=== PATIENT | male | born 1985 | race Caucasian/White ===

== ENCOUNTER 2017-07-15 08:09 | Emergency (ER) | payer MEDICAID ==
[~2017-07-15] VITALS: Ht 172.7 cm; Wt 60.0 kg
[~2017-07-15 08:09] MED LIST: ALBU8.5H4 IH; ALBU8.5H8 IH; ALPR-624 PO; ALPR1TAB2 PO; ALPR2TAB7 PO; CEPH-571 PO; CLIN-80 PO; ENAL5TAB PO; IBUP-1986 PO; NO HOME MEDS; OLAN5TAB3 PO; ONDA4TAB12 PO; PARO20TA6 PO; PARO30TA73 PO; PRAZ1CAP5 PO; PRED20TA PO; PROP10TA10 PO
[2017-07-15] MEDS ORDERED: SUMAtriptan 5 mg Nasal Spray NS ONE (08:40)
[2017-07-15] MEDS ORDERED: metoclopramide 5 mg/ml inj IM ONE (08:40)
[2017-07-15] MEDS ORDERED: ketorolac trometh inj. 60 MG/2 ML VIAL IM ONE (08:40)
[2017-07-15] MEDS ORDERED: SUMAtriptan succ. 6 MG/0.5ml vial SQ ONE (09:15)
[2017-07-15 10:26] VITALS: BP 122/60
== END 2017-07-15 10:28 | disposition home or self-care (01) ==
LOC: ER 08:10
DX: G43.909 Migraine, unspecified, not intractable, without status migrainosus (principal); F12.10 Cannabis abuse, uncomplicated; F15.10 Other stimulant abuse, uncomplicated; F11.10 Opioid abuse, uncomplicated
CPT/HCPCS: 70450; 96372; 99284; J1885; J2765; J3030

== ENCOUNTER 2018-01-18 17:42 | Emergency (ER) | payer MEDICAID ==
[~2018-01-18] VITALS: Ht 170.2 cm; Wt 59.5 kg
[~2018-01-18 17:42] MED LIST changes: -CLIN-80 PO; +CLIN300C85 PO; +QUET50TA PO; +TEMA15CA5 PO
[2018-01-18 17:49] VITALS: BP 127/63
[2018-01-18] MEDS ORDERED: PROPARACAINE/FLUORESCEIN ophthalmic drops 5ml bottle EACHEYE ONE (19:20)
[2018-01-18] MEDS ORDERED: succinylcholine 20mg/ml inj IV ONE (20:00)
== END 2018-01-18 19:57 | disposition left against medical advice (07) ==
LOC: ER 17:43
DX: H57.11 Ocular pain, right eye (principal); Z53.21 Procedure and treatment not carried out due to patient leaving prior to being seen by health care provider
CPT/HCPCS: J0330

== ENCOUNTER 2018-03-28 08:46 | Emergency (ER) | payer MEDICAID | END 2018-03-28 09:39 | disposition left against medical advice (07) | LOC: ER 08:46 | DX: R10.9 Unspecified abdominal pain (principal); Z53.21 Procedure and treatment not carried out due to patient leaving prior to being seen by health care provider ==

== ENCOUNTER 2018-04-03 14:02 | Emergency (ER) | payer MEDICAID ==
[~2018-04-03] VITALS: Ht 170.2 cm; Wt 49.0 kg
[2018-04-03 14:26] VITALS: BP 106/62
[2018-04-03] MEDS ORDERED: PENI500T2 PO (16:02)
[2018-04-03] MEDS ORDERED: IBUP-1984 PO (16:02)
== END 2018-04-03 16:11 | disposition home or self-care (01) ==
LOC: ER 14:03
DX: K02.9 Dental caries, unspecified (principal); F17.210 Nicotine dependence, cigarettes, uncomplicated; F12.90 Cannabis use, unspecified, uncomplicated; F15.90 Other stimulant use, unspecified, uncomplicated; F11.90 Opioid use, unspecified, uncomplicated; F19.90 Other psychoactive substance use, unspecified, uncomplicated; Z91.041 Radiographic dye allergy status; Z79.2 Long term (current) use of antibiotics; Z79.899 Other long term (current) drug therapy
CPT/HCPCS: 99283

== ENCOUNTER 2018-04-08 00:53 | Emergency (ER) | payer MEDICAID ==
[~2018-04-08] VITALS: Ht 170.2 cm; Wt 51.2 kg
[~2018-04-08 00:53] MED LIST changes: +IBUP-1984 PO; +PENI500T2 PO
[2018-04-08] MEDS ORDERED: ACET-3067 PO (01:41)
[2018-04-08 01:54] VITALS: BP 107/69
== END 2018-04-08 01:55 | disposition home or self-care (01) ==
LOC: ER 00:54
DX: R07.81 Pleurodynia (principal); F41.9 Anxiety disorder, unspecified; F32.9 Major depressive disorder, single episode, unspecified; F12.10 Cannabis abuse, uncomplicated; F15.10 Other stimulant abuse, uncomplicated; Z91.041 Radiographic dye allergy status; Z79.899 Other long term (current) drug therapy
CPT/HCPCS: 71101; 99284

== ENCOUNTER 2018-09-13 02:56 | Emergency (ER) | payer MEDICAID ==
[~2018-09-13] VITALS: Ht 170.2 cm; Wt 68.2 kg
[~2018-09-13 02:56] MED LIST changes: +CLIN-96 PO; -CLIN300C85 PO; -IBUP-1984 PO; -PENI500T2 PO
[2018-09-13 03:04] VITALS: BP 111/76
--- NOTE | 2018-09-13 03:26 | NUR ---
PT FOUND WITH GLIDESCOPE DOWN HIS THROAT. GLIDESCOPE REMOVED FROM ROOM AND THOROUGHLY SANITIZED
[2018-09-13] MEDS ORDERED: amoxicillin 250mg capsule PO ONE (03:50)
[2018-09-13] MEDS ORDERED: AMOX500C2 PO (03:51)
== END 2018-09-13 04:06 | disposition home or self-care (01) ==
LOC: ER 02:56
DX: K04.7 Periapical abscess without sinus (principal); F12.90 Cannabis use, unspecified, uncomplicated; F15.90 Other stimulant use, unspecified, uncomplicated; F11.90 Opioid use, unspecified, uncomplicated; Z91.041 Radiographic dye allergy status; Z79.899 Other long term (current) drug therapy
CPT/HCPCS: 41800; 99283

== ENCOUNTER 2019-01-25 08:10 | Emergency (ER) | payer MEDICAID ==
[~2019-01-25] VITALS: Ht 170.2 cm; Wt 68.2 kg
[2019-01-25 08:28] VITALS: BP 16/83
[2019-01-25] MEDS ORDERED: ketorolac trometh. 30mg/ml inj. IM ONE (08:55)
[2019-01-25] MEDS ORDERED: PENI500T2 PO (08:57)
[2019-01-25] MEDS ORDERED: IBUP-1984 PO (08:57)
== END 2019-01-25 09:13 | disposition home or self-care (01) ==
LOC: ER 08:11
DX: K02.9 Dental caries, unspecified (principal); K04.7 Periapical abscess without sinus; F41.9 Anxiety disorder, unspecified; F32.9 Major depressive disorder, single episode, unspecified; F17.200 Nicotine dependence, unspecified, uncomplicated; F12.90 Cannabis use, unspecified, uncomplicated; F15.90 Other stimulant use, unspecified, uncomplicated; F11.90 Opioid use, unspecified, uncomplicated; F10.99 Alcohol use, unspecified with unspecified alcohol-induced disorder; Z91.041 Radiographic dye allergy status; Z79.899 Other long term (current) drug therapy; Y90.9 Presence of alcohol in blood, level not specified
CPT/HCPCS: 99283; J1885; 99284

== ENCOUNTER 2019-03-03 16:26 | Emergency (ER) | payer MEDICAID ==
[~2019-03-03] VITALS: Ht 170.2 cm; Wt 69.4 kg
[2019-03-03] MEDS ORDERED: predniSONE 20 mg tablet PO ONE (17:10)
[2019-03-03] MEDS ORDERED: ipratropium/albuterol 3ml nebule NEB ONE (17:10)
[2019-03-03 17:25] LABS: BASOPHILS % (AUTO) 0.6 % (0-1); EOSINOPHILS # (AUTO) 0.4 X10'3 (0-0.9); EOSINOPHILS % (AUTO) 5.3 % (0-6); HEMATOCRIT 43.4 % (42.0-52.0); HEMOGLOBIN 14.7 g/dl (14.0-17.9); LYMPHOCYTES # (AUTO) 3.4 X10'3 (1.1-4.8); LYMPHOCYTES % (AUTO) 42.9 % (21-51); MEAN CORPUSCULAR HEMOGLOBIN 29.3 PG (27.0-31.0); MEAN CORPUSCULAR VOLUME 86.1 FL (78-98); MEAN PLATELET VOLUME 7.8 FL (7.4-10.4); MONOCYTES # (AUTO) 0.7 X10'3 (0-0.9); MONOCYTES % (AUTO) 8.7 % (2-12); NEUTROPHILS # (AUTO) 3.3 X10'3 (1.8-7.7); NEUTROPHILS % (AUTO) 42.5 % (42-75); PLATELET COUNT 246 X10'3 (140-440); RED BLOOD COUNT 5.04 X10'6 (4.70-6.10); RED CELL DISTRIBUTION WIDTH 14.7 % (11.5-14.5); WHITE BLOOD COUNT 7.8 X10'3 (4.5-11.0)
[2019-03-03 17:35] VITALS: BP 113/61
[2019-03-03 17:42] LABS: ALANINE AMINOTRANSFERASE 73 U/L (12-78); ALKALINE PHOSPHATASE 106 IU/L (46-116); ANION GAP 11 (8-16); ASPARTATE AMINO TRANSFERASE 53 U/L (10-37); BILIRUBIN,TOTAL 0.7 MG/DL (0.1-1.0); BLOOD UREA NITROGEN 18 MG/DL (7-18); BUN/CREATININE RATIO 21.4 (5.4-32.0); CALCIUM 9.4 MG/DL (8.5-10.1); CHLORIDE 100 MMOL/L (99-107); CREATININE 0.84 MG/DL (0.60-1.10); GLUCOSE 90 MG/DL (70-104); POTASSIUM 4.2 MMOL/L (3.5-5.1); SODIUM 139 MMOL/L (135-145); TOTAL CARBON DIOXIDE 28.4 MMOL/L (24-32); eGFR > 90 ML/MIN
[2019-03-03 17:43] LABS: PARTIAL THROMBOPLASTIN TIME 29 SECONDS (22-32)
[2019-03-03] MEDS ORDERED: ALBU6.7H9 INH (17:44)
[2019-03-03] MEDS ORDERED: LORA1TAB PO (17:49)
== END 2019-03-03 18:11 | disposition home or self-care (01) ==
LOC: ER 16:27
DX: R07.89 Other chest pain (principal); F41.9 Anxiety disorder, unspecified; F19.10 Other psychoactive substance abuse, uncomplicated; F32.9 Major depressive disorder, single episode, unspecified; F12.90 Cannabis use, unspecified, uncomplicated; F15.90 Other stimulant use, unspecified, uncomplicated; F11.90 Opioid use, unspecified, uncomplicated; R06.2 Wheezing; Z79.899 Other long term (current) drug therapy
CPT/HCPCS: 36415; 71045; 80053; 84484; 85025; 85610; 85730; 93005; 94640; 94760; 99284; J7512

== ENCOUNTER 2019-03-16 20:36 | Emergency (ER) | payer MEDICAID ==
[~2019-03-16] VITALS: Ht 170.2 cm; Wt 54.5 kg
[~2019-03-16 20:36] MED LIST changes: +ALBU6.7H9 INH
[2019-03-16 20:41] VITALS: BP 113/73
[2019-03-16] MEDS ORDERED: LIDO700A32 TOP (22:32)
[2019-03-16] MEDS ORDERED: ketorolac tromethamine 15mg/ml inj. IM ONE (22:35)
[2019-03-16] MEDS ORDERED: cyclobenzaprine 10mg tablet PO ONE (22:35)
== END 2019-03-16 23:20 | disposition home or self-care (01) ==
LOC: ER 20:36
DX: S39.012A Strain of muscle, fascia and tendon of lower back, initial encounter (principal); F41.9 Anxiety disorder, unspecified; F32.9 Major depressive disorder, single episode, unspecified; F41.0 Panic disorder [episodic paroxysmal anxiety]; F12.90 Cannabis use, unspecified, uncomplicated; F11.90 Opioid use, unspecified, uncomplicated; F15.90 Other stimulant use, unspecified, uncomplicated; Z88.8 Allergy status to other drugs, medicaments and biological substances; Z79.2 Long term (current) use of antibiotics; Z79.899 Other long term (current) drug therapy; X58.XXXA Exposure to other specified factors, initial encounter; Y93.89 Activity, other specified; Y92.89 Other specified places as the place of occurrence of the external cause; Y99.8 Other external cause status
CPT/HCPCS: 96372; 99283; J1885

== ENCOUNTER 2019-11-06 01:33 | Emergency (ER) | payer MEDICAID ==
[~2019-11-06] VITALS: Ht 170.2 cm; Wt 63.6 kg
[~2019-11-06 01:33] MED LIST changes: -CLIN-96 PO; +CLIN-97 PO; +LIDO700A32 TOP
[2019-11-06 01:37] VITALS: BP 141/80
[2019-11-06] MEDS ORDERED: clindamycin 150mg capsule PO ONE (02:10)
[2019-11-06] MEDS ORDERED: CLIN150C8 PO (02:11)
== END 2019-11-06 02:26 | disposition home or self-care (01) ==
LOC: ER 01:33
DX: L03.114 Cellulitis of left upper limb (principal); L03.113 Cellulitis of right upper limb; L03.116 Cellulitis of left lower limb; L03.115 Cellulitis of right lower limb; F12.90 Cannabis use, unspecified, uncomplicated; F15.90 Other stimulant use, unspecified, uncomplicated; F11.90 Opioid use, unspecified, uncomplicated; Z79.899 Other long term (current) drug therapy
CPT/HCPCS: 99283

== ENCOUNTER 2020-03-23 01:14 | Emergency (ER) | payer MEDICAID ==
[~2020-03-23] VITALS: Ht 170.2 cm; Wt 68.2 kg
[~2020-03-23 01:14] MED LIST changes: +CLIN150C8 PO; +ENAL-76 PO; -ENAL5TAB PO
[2020-03-23 01:20] VITALS: BP 108/66
== END 2020-03-23 01:59 | disposition home or self-care (01) ==
LOC: ER 01:15
DX: R53.83 Other fatigue (principal); R51.9 Headache, unspecified; R05 Cough; R11.2 Nausea with vomiting, unspecified; M79.18 Myalgia, other site; Z20.828 Contact with and (suspected) exposure to other viral communicable diseases; F41.9 Anxiety disorder, unspecified; F32.9 Major depressive disorder, single episode, unspecified; F17.200 Nicotine dependence, unspecified, uncomplicated; F12.90 Cannabis use, unspecified, uncomplicated; F15.90 Other stimulant use, unspecified, uncomplicated; F11.90 Opioid use, unspecified, uncomplicated; Z91.041 Radiographic dye allergy status; Z72.89 Other problems related to lifestyle; Z79.899 Other long term (current) drug therapy
CPT/HCPCS: 99282

== ENCOUNTER 2020-03-30 11:58 | Emergency (ER) | payer MEDICAID ==
[~2020-03-30] VITALS: Ht 170.2 cm; Wt 65.9 kg
[2020-03-30 12:19] VITALS: BP 137/64
[2020-03-30] MEDS ORDERED: SULF1TAB49 PO (12:22)
== END 2020-03-30 12:30 | disposition home or self-care (01) ==
LOC: ER 11:59
DX: M79.671 Pain in right foot (principal); F41.9 Anxiety disorder, unspecified; F32.9 Major depressive disorder, single episode, unspecified; F17.200 Nicotine dependence, unspecified, uncomplicated; F12.90 Cannabis use, unspecified, uncomplicated; F15.90 Other stimulant use, unspecified, uncomplicated; F19.90 Other psychoactive substance use, unspecified, uncomplicated; Z88.8 Allergy status to other drugs, medicaments and biological substances; Z72.89 Other problems related to lifestyle; Z79.2 Long term (current) use of antibiotics; Z79.899 Other long term (current) drug therapy
CPT/HCPCS: 99283

== ENCOUNTER 2020-05-08 22:52 | Inpatient (IN) | payer MEDICAID ==
[~2020-05-08] VITALS: Ht 170.2 cm; Wt 68.2 kg
[2020-05-08] MEDS ORDERED: vancomycin/NS 1 GM ADD-VANTAGE 250 ML IV ONE (23:25)
[2020-05-09 00:40] LABS: BASOPHILS # (AUTO) 0.1 X10'3 (0-0.2); EOSINOPHILS # (AUTO) 0.2 X10'3 (0-0.9); EOSINOPHILS % (AUTO) 2.4 % (0-6); HEMATOCRIT 34.7 % (42.0-52.0); HEMOGLOBIN 12.1 g/dl (14.0-17.9); LYMPHOCYTES # (AUTO) 1.9 X10'3 (1.1-4.8); LYMPHOCYTES % (AUTO) 20.7 % (21-51); MEAN CORPUSCULAR HEMOGLOBIN 29.4 PG (27.0-31.0); MEAN CORPUSCULAR HGB CONC 34.9 g/dL (33.0-36.5); MEAN CORPUSCULAR VOLUME 84.4 FL (78-98); MEAN PLATELET VOLUME 7.7 FL (7.4-10.4); MONOCYTES # (AUTO) 0.6 X10'3 (0-0.9); MONOCYTES % (AUTO) 6.3 % (2-12); NEUTROPHILS # (AUTO) 6.2 X10'3 (1.8-7.7); NEUTROPHILS % (AUTO) 69.6 % (42-75); PLATELET COUNT 289 X10'3 (140-440); RED BLOOD COUNT 4.12 X10'6 (4.70-6.10); RED CELL DISTRIBUTION WIDTH 13.7 % (11.5-14.5); WHITE BLOOD COUNT 8.9 X10'3 (4.5-11.0)
[2020-05-09 01:16] LABS: ALANINE AMINOTRANSFERASE 34 U/L (12-78); ALBUMIN 2.8 G/DL (3.4-5.0); ALBUMIN/GLOBULIN RATIO 0.8 (1.1-1.5); ALKALINE PHOSPHATASE 109 IU/L (46-116); ANION GAP 6 (8-16); ASPARTATE AMINO TRANSFERASE 37 U/L (10-37); BILIRUBIN,TOTAL 0.4 MG/DL (0.1-1.0); BLOOD UREA NITROGEN 10 MG/DL (7-18); BUN/CREATININE RATIO 14.5 (5.4-32.0); CALCIUM 8.4 MG/DL (8.5-10.1); CHLORIDE 107 MMOL/L (99-107); CREATININE 0.69 MG/DL (0.60-1.10); GLUCOSE 100 MG/DL (70-104); SODIUM 141 MMOL/L (135-145); TOTAL CARBON DIOXIDE 28.4 MMOL/L (24-32); TOTAL PROTEIN 6.3 G/DL (6.4-8.2); eGFR > 90 ML/MIN
[2020-05-09] MEDS ORDERED: mag hydrox/Alum hydrox/simeth 30ml oral suspension PO PRN (03:00)
[2020-05-09] MEDS ORDERED: HYDROcodone/acetaminophen 5mg/325mg tablet PO PRN (03:00)
[2020-05-09] MEDS ORDERED: magnesium hydroxide 30ml (MOM) UD suspension PO PRN (03:00)
[2020-05-09] MEDS ORDERED: HYDROcodone/acetaminophen 10/325mg tab PO PRN (03:00)
[2020-05-09] MEDS ORDERED: normal saline 1000ml 1,000 ML IV SCH (03:00)
[2020-05-09] MEDS ORDERED: acetaminophen 325mg tablet PO PRN (03:00)
[2020-05-09] MEDS ORDERED: ondansetron/PF 4mg/2ml inj IV PRN (03:00)
[2020-05-09] MEDS ORDERED: NO HOME MEDS (03:23)
--- NOTE | 2020-05-09 03:43 | NUR ---
Patient in room ED 7. I have received report from SABIHA MORALES RN and had the opportunity to ask questions and assume patient care. Addendum: 05/09/20 at 0344 by Fatuma Medrano RN Amended: Links added.
[2020-05-09 03:57] VITALS: BP 93/46
--- NOTE | 2020-05-09 04:00 | NUR ---
PT FOOT PICTURES TAKEN WENT TO ATTEMPT TO DART PT PT PT CLOSED EYES AND WOULD NOT ANSWER THE QUESTIONS SO DEFERRED TO DAYSHIFT.
--- NOTE | 2020-05-09 06:11 | NUR ---
Problems reprioritized. Patient report given, questions answered & plan of care reviewed with KYREE MANUEL. Addendum: 05/09/20 at 0612 by Fatuma Medrano RN Amended: Links added.
[2020-05-09 08:00] VITALS: BP 81/41
[2020-05-09] MEDS ORDERED: clindamycin 600mg/D5W 50ml 50 ML IV SCH (08:00)
[2020-05-09] MEDS ORDERED: potassium CL 10mEq/100ml bag 100 ML IV PRN (09:30)
[2020-05-09] MEDS ORDERED: magnesium 4gm in 100ml NS 100 ML IV PRN (09:30)
[2020-05-09] MEDS ORDERED: magnesium Cl slow-release 64mg tablet PO PRN (09:30)
[2020-05-09] MEDS ORDERED: potassium Cl 20 mEq SR tablet PO PRN ×2 (09:30)
[2020-05-09] MEDS ORDERED: cefepime 1GM/NS ADD-VANTAGE 100 ML IV SCH ×2 (09:35→20:00)
[2020-05-09] MEDS: heparin, porcine 5000 units/ml vial SQ SCH ×2 (09:36→20:00)
[2020-05-09] MEDS ORDERED: vancomycin/NS 1 GM ADD-VANTAGE 250 ML IV SCH (10:00)
[2020-05-09 10:25] LABS: HIV ANTIBODY 1&2 RAPID NON-REACTIVE (Neg)
[2020-05-09 11:00] VITALS: BP 99/55
[2020-05-09 12:38] LABS: URINE AMPHETAMINE SCREEN NEGATIVE (Neg); URINE BARBITUATE SCREEN NEGATIVE (Neg); URINE BENZODIAZEPINES SCREEN POSITIVE (Neg); URINE CANNABINOID SCREEN POSITIVE (Neg); URINE COCAINE SCREEN NEGATIVE (Neg); URINE METHADONE SCREEN NEGATIVE (Neg); URINE OPIATE SCREEN POSITIVE (Neg); URINE PHENCYCLIDINE SCREEN NEGATIVE (Neg)
[2020-05-09 12:42] LABS: CLARITY,URINE CLEAR (Clear); COLOR,URINE YELLOW (Yellow); GLUCOSE, URINE NEGATIVE (Neg); KETONES,URINE NEGATIVE (Neg); LEUKOCYTE ESTERASE ,URINE NEGATIVE (Neg); NITRITES, URINE NEGATIVE (Neg); OCCULT BLOOD,URINE NEGATIVE (Neg); PH,URINE 6.5 (4.8-8.0); PROTEIN,URINE NEGATIVE (Neg); UROBILINOGEN,URINE 0.2 E.U/dL (0.2-1.0)
[2020-05-09 12:52] LABS: UA COLLECTION TYPE VOIDED
[2020-05-09 18:00] VITALS: BP 112/62
--- NOTE | 2020-05-09 18:08 | NUR ---
Received report from KALEB Soto. Patient resting comfortably on room air, in no apparent distress. Call light and items of frequent use within reach. Will continue to monitor.
[2020-05-09] MEDS ORDERED: LORazepam 2 mg/ml vial IV PRN (19:05)
[2020-05-09] MEDS ORDERED: K and/or MAG REPLACEMENT MC SCH (20:00)
[2020-05-09] MEDS ORDERED: lactobacillus rhamnosus 10,000 MMU CELLS/CAPSULE PO SCH (20:00)
--- NOTE | 2020-05-09 20:10 | NUR ---
Patient refused all care, medications, physical assessment, saying that he wants to leave AMA. Explained all risks and complications. Patient verbalized understanding to all education given, but his choice is to leave the hospital. MD Lázaro aware. Discontinued IV to Right Upper Arm. Provided socks and belongings bag to take all his belongings with him. Patient ambulated out of the surgical unit independently with a steady gait.
[2020-05-10] MEDS ORDERED: vancomycin/NS 1 GM ADD-VANTAGE 250 ML IV SCH
[2020-05-10] MEDS ORDERED: VANCOMYCIN LEVEL IV ONE (15:30)
== END 2020-05-09 20:20 | disposition left against medical advice (07) | DRG 383 ==
LOC: ER 22:53 → ED HOLD 05-09 03:03 → SUR 3N 05-09 03:45
PROVIDERS: ADMIT Internal Medicine; ATTEND Family Medicine
DX: L03.115 Cellulitis of right lower limb (principal); F41.0 Panic disorder [episodic paroxysmal anxiety]; F17.200 Nicotine dependence, unspecified, uncomplicated; F12.90 Cannabis use, unspecified, uncomplicated; Z53.29 Procedure and treatment not carried out because of patient's decision for other reasons; F32.9 Major depressive disorder, single episode, unspecified; F41.9 Anxiety disorder, unspecified; Z59.0 Homelessness; Z91.041 Radiographic dye allergy status; Z79.899 Other long term (current) drug therapy
CPT/HCPCS: 36415; 80053; 80305; 81003; 83605; 84145; 85025; 86703; 87040; 87081; 93306; 93308; 96365; 99285; G0378; J0692; J1644; J3370; J7030

== ENCOUNTER 2020-06-16 22:30 | Emergency (ER) | payer MEDICAID ==
[~2020-06-16] VITALS: Ht 170.2 cm; Wt 6.6 kg
[~2020-06-16 22:30] MED LIST changes: -ALBU6.7H9 INH; -ALBU8.5H4 IH; -ALBU8.5H8 IH; -ALPR-624 PO; -ALPR1TAB2 PO; -ALPR2TAB7 PO; -CEPH-571 PO; -CLIN-97 PO; -CLIN150C8 PO; -ENAL-76 PO; -IBUP-1986 PO; -LIDO700A32 TOP; -OLAN5TAB3 PO; -ONDA4TAB12 PO; -PARO20TA6 PO; -PARO30TA73 PO; -PRAZ1CAP5 PO; -PRED20TA PO; -PROP10TA10 PO; -QUET50TA PO; -TEMA15CA5 PO
[2020-06-16 23:51] VITALS: BP 95/54
[2020-06-17] MEDS ORDERED: ondansetron 4mg rapidly disintigrating tab PO ONE (00:10)
[2020-06-17] MEDS ORDERED: clindamycin 150mg capsule PO ONE (00:10)
[2020-06-17] MEDS ORDERED: CLIN150C8 PO (01:00)
== END 2020-06-17 01:23 | disposition home or self-care (01) ==
LOC: ER 22:30
DX: L02.416 Cutaneous abscess of left lower limb (principal); M25.552 Pain in left hip; R50.9 Fever, unspecified; F41.9 Anxiety disorder, unspecified; F32.9 Major depressive disorder, single episode, unspecified; F12.90 Cannabis use, unspecified, uncomplicated; F15.90 Other stimulant use, unspecified, uncomplicated; F11.90 Opioid use, unspecified, uncomplicated; F19.90 Other psychoactive substance use, unspecified, uncomplicated; Z72.89 Other problems related to lifestyle; Z88.8 Allergy status to other drugs, medicaments and biological substances; Z79.2 Long term (current) use of antibiotics
CPT/HCPCS: 10060; 99283

== ENCOUNTER 2021-01-02 23:44 | Emergency (ER) | payer MEDICAID ==
[~2021-01-02] VITALS: Ht 170.2 cm; Wt 65.0 kg
[~2021-01-02 23:44] MED LIST changes: +CLIN150C8 PO
[2021-01-02 23:48] VITALS: BP 107/61
[2021-01-03 00:35] LABS: BASOPHILS % (AUTO) 0.4 % (0-1); EOSINOPHILS # (AUTO) 0.1 X10'3 (0-0.9); EOSINOPHILS % (AUTO) 1.1 % (0-6); HEMOGLOBIN 12.8 g/dl (14.0-17.9); LYMPHOCYTES # (AUTO) 2.5 X10'3 (1.1-4.8); LYMPHOCYTES % (AUTO) 22.2 % (21-51); MEAN CORPUSCULAR HEMOGLOBIN 30.2 PG (27.0-31.0); MEAN CORPUSCULAR HGB CONC 34.7 g/dL (33.0-36.5); MEAN CORPUSCULAR VOLUME 86.8 FL (78-98); MEAN PLATELET VOLUME 7.8 FL (7.4-10.4); MONOCYTES # (AUTO) 0.7 X10'3 (0-0.9); MONOCYTES % (AUTO) 5.9 % (2-12); NEUTROPHILS # (AUTO) 7.8 X10'3 (1.8-7.7); NEUTROPHILS % (AUTO) 70.4 % (42-75); PLATELET COUNT 211 X10'3 (140-440); RED BLOOD COUNT 4.26 X10'6 (4.70-6.10); RED CELL DISTRIBUTION WIDTH 13.3 % (11.5-14.5); WHITE BLOOD COUNT 11.1 X10'3 (4.5-11.0)
[2021-01-03 00:49] LABS: ALANINE AMINOTRANSFERASE 22 U/L (12-78); ALBUMIN 3.5 G/DL (3.4-5.0); ALKALINE PHOSPHATASE 85 IU/L (46-116); ASPARTATE AMINO TRANSFERASE 23 U/L (10-37); BILIRUBIN,TOTAL 1.4 MG/DL (0.1-1.0); BLOOD UREA NITROGEN 8 MG/DL (7-18); BUN/CREATININE RATIO 9.3 (5.4-32.0); CALCIUM 8.4 MG/DL (8.5-10.1); CREATININE 0.86 MG/DL (0.60-1.10); GLUCOSE 73 MG/DL (70-104); TOTAL CARBON DIOXIDE 28.7 MMOL/L (24-32); TOTAL PROTEIN 7.1 G/DL (6.4-8.2); eGFR > 90 ML/MIN
[2021-01-03 01:00] LABS: ANION GAP 7 (8-16); CHLORIDE 99 MMOL/L (99-107); SODIUM 135 MMOL/L (135-145)
[2021-01-03] MEDS ORDERED: SULF1TAB49 PO (01:40)
== END 2021-01-03 01:54 | disposition home or self-care (01) ==
LOC: ER 23:44
DX: L03.115 Cellulitis of right lower limb (principal); L02.415 Cutaneous abscess of right lower limb; F41.9 Anxiety disorder, unspecified; F32.9 Major depressive disorder, single episode, unspecified; F17.200 Nicotine dependence, unspecified, uncomplicated; F12.90 Cannabis use, unspecified, uncomplicated; F15.90 Other stimulant use, unspecified, uncomplicated; F11.90 Opioid use, unspecified, uncomplicated; F19.90 Other psychoactive substance use, unspecified, uncomplicated; Z59.0 Homelessness; Z72.89 Other problems related to lifestyle; Z88.8 Allergy status to other drugs, medicaments and biological substances; Z79.2 Long term (current) use of antibiotics
CPT/HCPCS: 36415; 80053; 83605; 85025; 87040; 99283

== ENCOUNTER 2021-03-04 01:28 | Emergency (ER) | payer MEDICAID ==
[~2021-03-04] VITALS: Ht 170.2 cm; Wt 55.5 kg
[2021-03-04 01:31] VITALS: BP 126/84
[2021-03-04] MEDS ORDERED: ketorolac tromethamine 15mg/ml inj. IM ONE (01:40)
[2021-03-04] MEDS ORDERED: acetaminophen 325mg tablet PO ONE (01:40)
[2021-03-04] MEDS ORDERED: AMOX500C2 PO (01:41)
[2021-03-04] MEDS ORDERED: METH4TAB81 PO (01:41)
[2021-03-04] MEDS ORDERED: HYDR-3965 PO (01:41)
[2021-03-04] MEDS ORDERED: METR500T PO (01:41)
[2021-03-04] MEDS ORDERED: ONDA4TAB6 PO (01:41)
== END 2021-03-04 02:25 | disposition home or self-care (01) ==
LOC: ER 01:29
DX: K08.89 Other specified disorders of teeth and supporting structures (principal); K02.9 Dental caries, unspecified; F12.90 Cannabis use, unspecified, uncomplicated; F15.90 Other stimulant use, unspecified, uncomplicated; Z72.89 Other problems related to lifestyle; Z79.899 Other long term (current) drug therapy; Z79.2 Long term (current) use of antibiotics; Z91.041 Radiographic dye allergy status
CPT/HCPCS: 96372; 99283; J1885

== ENCOUNTER → 2021-04-20 | Emergency (ER) | payer MEDICAID ==
[~2021-04-20] VITALS: Ht 170.2 cm; Wt 61.4 kg
[~2021-04-20] MED LIST changes: +LIDOcaine 1% W/epiNEPHrine 1:200,000 10ml vial IJ ONE; +METH4TAB81 PO; +ONDA4TAB6 PO; +normal saline 1000ML IV soln IV ONE; +piperacillin/tazo 3.375gm/50ml 50 ML IV ONE
[2021-04-20 20:47] VITALS: BP 139/70
[2021-04-20 21:30] LABS: BASOPHILS # (AUTO) 0.1 X10'3 (0-0.2); BASOPHILS % (AUTO) 0.4 % (0-1); EOSINOPHILS # (AUTO) 0.3 X10'3 (0-0.9); HEMATOCRIT 37.5 % (42.0-52.0); HEMOGLOBIN 13.2 g/dl (14.0-17.9); LYMPHOCYTES # (AUTO) 4.3 X10'3 (1.1-4.8); LYMPHOCYTES % (AUTO) 26.8 % (21-51); MEAN CORPUSCULAR HEMOGLOBIN 30.7 PG (27.0-31.0); MEAN CORPUSCULAR HGB CONC 35.1 g/dL (33.0-36.5); MEAN CORPUSCULAR VOLUME 87.4 FL (78-98); MEAN PLATELET VOLUME 7.2 FL (7.4-10.4); MONOCYTES # (AUTO) 1.1 X10'3 (0-0.9); MONOCYTES % (AUTO) 6.8 % (2-12); NEUTROPHILS # (AUTO) 10.3 X10'3 (1.8-7.7); PLATELET COUNT 339 X10'3 (140-440); RED BLOOD COUNT 4.29 X10'6 (4.70-6.10); RED CELL DISTRIBUTION WIDTH 13.9 % (11.5-14.5); WHITE BLOOD COUNT 16.1 X10'3 (4.5-11.0)
--- NOTE | 2021-04-20 21:38 | NUR ---
after several attempts for iv access pt stated he wanted to leave and was going to go to [facility].
[2021-04-20 21:45] LABS: ALANINE AMINOTRANSFERASE 30 U/L (12-78); ALBUMIN 3.7 G/DL (3.4-5.0); ALBUMIN/GLOBULIN RATIO 0.9 (1.1-1.5); ALKALINE PHOSPHATASE 103 IU/L (46-116); BLOOD UREA NITROGEN 13 MG/DL (7-18); BUN/CREATININE RATIO 17.6 (5.4-32.0); CALCIUM 8.5 MG/DL (8.5-10.1); CHLORIDE 100 MMOL/L (99-107); CREATININE 0.74 MG/DL (0.60-1.10); GLUCOSE 119 MG/DL (70-104); TOTAL PROTEIN 7.6 G/DL (6.4-8.2); eGFR > 90 ML/MIN
[2021-04-20 21:55] LABS: ANION GAP 2 (8-16); POTASSIUM 3.3 MMOL/L (3.5-5.1); SODIUM 128 MMOL/L (135-145)
[2021-04-20 22:00] LABS: ASPARTATE AMINO TRANSFERASE 27 U/L (10-37)
== END | disposition home or self-care (01) ==
LOC: ER 20:13
DX: L03.311 Cellulitis of abdominal wall (principal); F12.90 Cannabis use, unspecified, uncomplicated; F15.90 Other stimulant use, unspecified, uncomplicated; F11.90 Opioid use, unspecified, uncomplicated; Z72.89 Other problems related to lifestyle; Z79.899 Other long term (current) drug therapy; Z79.2 Long term (current) use of antibiotics; Z91.041 Radiographic dye allergy status
CPT/HCPCS: 36415; 80053; 83735; 84145; 85025; 99283

== ENCOUNTER 2021-05-21 10:59 | Emergency (ER) | payer MEDICAID ==
[~2021-05-21] VITALS: Ht 170.2 cm; Wt 65.9 kg
[~2021-05-21 10:59] MED LIST changes: -LIDOcaine 1% W/epiNEPHrine 1:200,000 10ml vial IJ ONE; -normal saline 1000ML IV soln IV ONE; -piperacillin/tazo 3.375gm/50ml 50 ML IV ONE
[2021-05-21 11:16] VITALS: BP 134/69
--- NOTE | 2021-05-21 11:19 | NUR ---
PATIENT IS HERE FOR C/O COUGH, CONGESTION AND WHEEZE X 1 DAY. UNCOOPERATIVE WITH INTAKE QUESTIONS AND BECAME ANGRY/RUDE TO NURSE WHEN ASKED ABOUT HIS VACCINE STATUS.
[2021-05-21] MEDS ORDERED: BENZ-38 PO (13:09)
[2021-05-21] MEDS ORDERED: ALBU8HFA PO (13:09)
== END 2021-05-21 13:32 | disposition home or self-care (01) ==
LOC: ER 11:00
DX: J06.9 Acute upper respiratory infection, unspecified (principal); Z20.822 Contact with and (suspected) exposure to COVID-19; F31.9 Bipolar disorder, unspecified; F12.10 Cannabis abuse, uncomplicated; F15.10 Other stimulant abuse, uncomplicated; Z79.899 Other long term (current) drug therapy
CPT/HCPCS: 87635; 99283; C9803

== ENCOUNTER 2021-06-13 08:49 | Emergency (ER) | payer MEDICAID ==
[~2021-06-13] VITALS: Ht 170.2 cm; Wt 65.9 kg
[~2021-06-13 08:49] MED LIST changes: +ALBU8HFA PO
[2021-06-13 09:03] VITALS: BP 119/64
== END 2021-06-13 09:50 | disposition home or self-care (01) ==
LOC: ER 08:50
DX: J06.9 Acute upper respiratory infection, unspecified (principal); R05.9 Cough, unspecified; R06.02 Shortness of breath; J45.909 Unspecified asthma, uncomplicated; F41.9 Anxiety disorder, unspecified; F32.9 Major depressive disorder, single episode, unspecified; F12.90 Cannabis use, unspecified, uncomplicated; F15.90 Other stimulant use, unspecified, uncomplicated; F11.90 Opioid use, unspecified, uncomplicated; F19.90 Other psychoactive substance use, unspecified, uncomplicated; Z72.89 Other problems related to lifestyle; Z88.8 Allergy status to other drugs, medicaments and biological substances; Z79.2 Long term (current) use of antibiotics; Z79.899 Other long term (current) drug therapy
CPT/HCPCS: 99281

== ENCOUNTER 2021-12-23 15:28 | Emergency (ER) | payer MEDICAID ==
[~2021-12-23] VITALS: Ht 170.2 cm; Wt 63.6 kg
[~2021-12-23 15:28] MED LIST changes: -ALBU8HFA PO; +IBUP-860 PO; +SULF1TAB49 PO
--- NOTE | 2021-12-23 17:33 | NUR ---
The patient is a 36 year old who presented for mental heatlh help. He stated that he has been feeling unsafe. He also stated that he felt people in the lobby were talking about him. "I don't feel good" He reports auditory hallucinations of whispers. He is homeless and not working. He denies that he is suicidal or that he wants to . He reports last meth use was He has been cooperative with everything that has been asked of him. He does have abcesses on his left but cheek and on his left fore arm and was seen in the ER yesterday and rx antibiotics. He reports recent methamphetamine use and a history of IV drug use. The lab is having difficulty getting his blood drawn but he is being cooperative.
[2021-12-23] MEDS ORDERED: SULF1TAB45 PO (17:42)
[2021-12-23] MEDS ORDERED: IBUP-1984 PO (17:42)
[2021-12-23 18:05] LABS: ALANINE AMINOTRANSFERASE 26 U/L (12-78); ALBUMIN 3.9 G/DL (3.4-5.0); ALBUMIN/GLOBULIN RATIO 0.9 (1.1-1.5); ALKALINE PHOSPHATASE 106 IU/L (46-116); ANION GAP 12 (8-16); ASPARTATE AMINO TRANSFERASE 30 U/L (10-37); BILIRUBIN,TOTAL 0.3 MG/DL (0.1-1.0); BLOOD UREA NITROGEN 8 MG/DL (7-18); BUN/CREATININE RATIO 9.9 (5.4-32.0); CALCIUM 9.1 MG/DL (8.5-10.1); CHLORIDE 102 MMOL/L (99-107); CREATININE 0.81 MG/DL (0.60-1.10); ETHANOL < 0.010 GM/DL (0.0-0.010); GLUCOSE 95 MG/DL (70-104); POTASSIUM 3.7 MMOL/L (3.5-5.1); SODIUM 138 MMOL/L (135-145); TOTAL CARBON DIOXIDE 23.6 MMOL/L (24-32); TOTAL PROTEIN 8.1 G/DL (6.4-8.2); eGFR > 90 ML/MIN
--- NOTE | 2021-12-23 18:55 | NUR ---
Patient got up to use bathroom.Polite and appropriate. Lab trying to get a lab draw the third time. Patient ate dinner and is with lab now.
[2021-12-23 18:57] LABS: URINE AMPHETAMINE SCREEN POSITIVE (Neg); URINE BARBITUATE SCREEN NEGATIVE (Neg); URINE BENZODIAZEPINES SCREEN POSITIVE (Neg); URINE CANNABINOID SCREEN POSITIVE (Neg); URINE COCAINE SCREEN NEGATIVE (Neg); URINE METHADONE SCREEN NEGATIVE (Neg); URINE OPIATE SCREEN NEGATIVE (Neg); URINE PHENCYCLIDINE SCREEN NEGATIVE (Neg)
[2021-12-23 19:15] LABS: BASOPHILS % (AUTO) 0.2 % (0-1); EOSINOPHILS # (AUTO) 0.1 X10'3 (0-0.9); EOSINOPHILS % (AUTO) 0.6 % (0-6); HEMATOCRIT 36.2 % (42.0-52.0); HEMOGLOBIN 12.5 g/dl (14.0-17.9); LYMPHOCYTES # (AUTO) 2.2 X10'3 (1.1-4.8); LYMPHOCYTES % (AUTO) 15.1 % (21-51); MEAN CORPUSCULAR HEMOGLOBIN 29.4 PG (27.0-31.0); MEAN CORPUSCULAR HGB CONC 34.5 g/dL (33.0-36.5); MEAN CORPUSCULAR VOLUME 85.4 FL (78-98); MEAN PLATELET VOLUME 7.2 FL (7.4-10.4); MONOCYTES # (AUTO) 0.7 X10'3 (0-0.9); MONOCYTES % (AUTO) 4.7 % (2-12); NEUTROPHILS # (AUTO) 11.6 X10'3 (1.8-7.7); NEUTROPHILS % (AUTO) 79.4 % (42-75); PLATELET COUNT 381 X10'3 (140-440); RED BLOOD COUNT 4.24 X10'6 (4.70-6.10); RED CELL DISTRIBUTION WIDTH 13.3 % (11.5-14.5); WHITE BLOOD COUNT 14.6 X10'3 (4.5-11.0)
[2021-12-23] MEDS ORDERED: normal saline 1000ML IV soln IVB ONE (19:55)
[2021-12-23] MEDS ORDERED: OLANZapine 5mg rapidly disint. tablet PO ONE (19:55)
[2021-12-23] MEDS ORDERED: ibuprofen tablet 400 MG TABLET PO PRN (20:05)
--- NOTE | 2021-12-23 21:41 | NUR ---
Pt took 10mg Zyprexa. Patient reports that he needs his Methadone. Pt asking for Ativan. Waiting for IV.
--- NOTE | 2021-12-23 21:56 | NUR ---
Patient refused IV bolus. Patient is on PO antibiotics, water offered.
[2021-12-24] MEDS ORDERED: LORazepam 1 MG tablet PO ONE (00:25)
--- NOTE | 2021-12-24 00:32 | NUR ---
Patient restless unable to sleep and irritable. Dr payton ordered 1mg Ativan. Patient took medication w/o complications and pulled blankets over head and appears to be resting.
--- NOTE | 2021-12-24 03:48 | NUR ---
Pt appears to be sleeping at this time.
[2021-12-24 05:31] VITALS: BP 93/52
--- NOTE | 2021-12-24 05:35 | NUR ---
Patient lying in bed, occasionally moans. Pt requested that we [facility] for his Methadone prescription. Pharmacy notified and reported they had one worker. VS done. Will continue to monitor.
--- NOTE | 2021-12-24 05:49 | NUR ---
Pharmacy called and reported that Serena reports that the patient took 15mg of Methadone on December 11. will continue to monitor.
--- NOTE | 2021-12-24 06:41 | NUR ---
Patient sleeping on right side and started sneezing. No distress observed. Continue to monitor.
[2021-12-24] MEDS ORDERED: sulfamethoxazole/trimethoprim DS (800/160mg) tablet PO SCH (08:00)
--- NOTE | 2021-12-24 08:14 | NUR ---
RN awoke patient to give him his antibiotic. Patient demanding his methadone. RN advised patient that she spoke to the doctor about the methadone and he would come talk to him to decide if he will give it too him. Patient upset. RN explained that he last picked up his methadon on 12/11, which was 2 weeks ago. Continue to monitor.
--- NOTE | 2021-12-24 09:25 | NUR ---
Dr. Nolasco evaluating patient. RN at bedside. Continue to monitor.
== END 2021-12-24 09:56 | disposition home or self-care (01) ==
LOC: ER 15:29
DX: F22 Delusional disorders (principal); Z20.822 Contact with and (suspected) exposure to COVID-19; J45.909 Unspecified asthma, uncomplicated; F12.90 Cannabis use, unspecified, uncomplicated; F15.20 Other stimulant dependence, uncomplicated; Z91.041 Radiographic dye allergy status
CPT/HCPCS: 36415; 80053; 80305; 80320; 85025; 87635; 99284; C9803; J7030

== ENCOUNTER 2022-02-24 20:14 | Emergency (ER) | payer MEDICAID ==
[~2022-02-24] VITALS: Ht 172.7 cm; Wt 65.9 kg
[~2022-02-24 20:14] MED LIST changes: -CLIN150C8 PO; +IBUP-1984 PO; -IBUP-860 PO; -METH4TAB81 PO; -NO HOME MEDS; -ONDA4TAB6 PO; +SULF1TAB45 PO; -SULF1TAB49 PO
[2022-02-24 20:24] VITALS: BP 115/61
[2022-02-24] MEDS ORDERED: SULF1TAB49 PO (23:04)
[2022-02-24] MEDS ORDERED: sulfamethoxazole/trimethoprim DS (800/160mg) tablet PO ONE (23:05)
== END 2022-02-24 23:17 | disposition home or self-care (01) ==
LOC: ER 20:14
DX: L02.818 Cutaneous abscess of other sites (principal); R11.2 Nausea with vomiting, unspecified; J45.909 Unspecified asthma, uncomplicated; F41.9 Anxiety disorder, unspecified; F32.A Depression, unspecified; F12.90 Cannabis use, unspecified, uncomplicated; F15.90 Other stimulant use, unspecified, uncomplicated; F11.90 Opioid use, unspecified, uncomplicated; F19.90 Other psychoactive substance use, unspecified, uncomplicated; Z72.89 Other problems related to lifestyle; Z88.8 Allergy status to other drugs, medicaments and biological substances; Z79.2 Long term (current) use of antibiotics
CPT/HCPCS: 99283

== ENCOUNTER 2022-06-23 16:48 | Emergency (ER) | payer MEDICAID ==
[~2022-06-23] VITALS: Ht 170.2 cm; Wt 68.0 kg
[2022-06-23 16:50] VITALS: BP 120/65
[2022-06-23] MEDS ORDERED: sulfamethoxazole/trimethoprim DS (800/160mg) tablet PO ONE (17:20)
[2022-06-23] MEDS ORDERED: SULF1TAB49 PO (17:25)
== END 2022-06-23 17:38 | disposition home or self-care (01) ==
LOC: ER 16:49
DX: L03.116 Cellulitis of left lower limb (principal); F31.9 Bipolar disorder, unspecified; J45.909 Unspecified asthma, uncomplicated; F12.10 Cannabis abuse, uncomplicated; F15.10 Other stimulant abuse, uncomplicated; F11.10 Opioid abuse, uncomplicated; Z88.8 Allergy status to other drugs, medicaments and biological substances; Z79.899 Other long term (current) drug therapy
CPT/HCPCS: 99284

== ENCOUNTER 2022-10-08 20:53 | Emergency (ER) | payer MEDICAID ==
[~2022-10-08] VITALS: Ht 167.6 cm; Wt 56.8 kg
[2022-10-08] MEDS: olanzapine 10mg tablet PO SCH (23:17)
--- NOTE | 2022-10-08 23:25 | NUR ---
Pt c/o "just can't keep anything down." Denies pain; Denies thoughts of harming self or others; Refusing to answer further assessment questions at this time; States he wants to be left alone, but did accept ordered medication administration
--- NOTE | 2022-10-09 | NUR ---
Multiple attempts made by lab virtual assistant for [employer] to collect ordered labs; This RN attempted to collect blood from pt without success; ED charge nurse Anusha made aware and attempts made to collect labs, but pt is difficult stick and lab collection is still pending
[2022-10-09 03:43] LABS: BASOPHILS # (AUTO) 0.1 X10'3 (0-0.2); BASOPHILS % (AUTO) 0.6 % (0-1); EOSINOPHILS # (AUTO) 0.2 X10'3 (0-0.9); EOSINOPHILS % (AUTO) 1.9 % (0-6); HEMATOCRIT 41.5 % (42.0-52.0); HEMOGLOBIN 13.9 g/dl (14.0-17.9); LYMPHOCYTES % (AUTO) 23.5 % (21-51); MEAN CORPUSCULAR HEMOGLOBIN 28.7 PG (27.0-31.0); MEAN CORPUSCULAR HGB CONC 33.5 g/dL (33.0-36.5); MEAN CORPUSCULAR VOLUME 85.5 FL (78-98); MONOCYTES # (AUTO) 0.8 X10'3 (0-0.9); MONOCYTES % (AUTO) 6.3 % (2-12); NEUTROPHILS # (AUTO) 8.6 X10'3 (1.8-7.7); NEUTROPHILS % (AUTO) 67.7 % (42-75); PLATELET COUNT 360 X10'3 (140-440); RED BLOOD COUNT 4.85 X10'6 (4.70-6.10); RED CELL DISTRIBUTION WIDTH 14.1 % (11.5-14.5); WHITE BLOOD COUNT 12.7 X10'3 (4.5-11.0)
[2022-10-09 04:08] LABS: ALANINE AMINOTRANSFERASE 35 U/L (12-78); ALBUMIN 3.7 G/DL (3.4-5.0); ALBUMIN/GLOBULIN RATIO 1.1 (1.1-1.5); ALKALINE PHOSPHATASE 87 IU/L (46-116); ANION GAP 9 (8-16); ASPARTATE AMINO TRANSFERASE 27 U/L (10-37); BILIRUBIN,TOTAL 0.9 MG/DL (0.1-1.0); BLOOD UREA NITROGEN 13 MG/DL (7-18); CALCIUM 8.9 MG/DL (8.5-10.1); CHLORIDE 103 MMOL/L (99-107); CREATININE 0.62 MG/DL (0.60-1.10); ETHANOL < 0.010 GM/DL (0.0-0.010); GLUCOSE 111 MG/DL (70-104); POTASSIUM 3.4 MMOL/L (3.5-5.1); SODIUM 141 MMOL/L (135-145); TOTAL CARBON DIOXIDE 29.2 MMOL/L (24-32); TOTAL PROTEIN 7.2 G/DL (6.4-8.2); eGFR > 90 ML/MIN
[2022-10-09 04:09] LABS: ACETAMINOPHEN < 2.0 UG/ML (10-30)
--- NOTE | 2022-10-09 05:00 | NUR ---
report given to overflow nurse. pt moved to room 26
--- NOTE | 2022-10-09 05:02 | NUR ---
Patient moved to bed 26 from the main ER.
[2022-10-09 05:23] LABS: URINE AMPHETAMINE SCREEN POSITIVE (Neg); URINE BARBITUATE SCREEN NEGATIVE (Neg); URINE BENZODIAZEPINES SCREEN NEGATIVE (Neg); URINE CANNABINOID SCREEN POSITIVE (Neg); URINE COCAINE SCREEN NEGATIVE (Neg); URINE METHADONE SCREEN NEGATIVE (Neg); URINE OPIATE SCREEN NEGATIVE (Neg); URINE PHENCYCLIDINE SCREEN NEGATIVE (Neg)
--- NOTE | 2022-10-09 05:54 | NUR ---
Packet sent to [facility]
--- NOTE | 2022-10-09 08:30 | NUR ---
Pt. asleep in bed on his right side. Addendum: 10/09/22 at 0926 by FADUMO Respirations 18, even and unlabored.
[2022-10-09] MEDS ORDERED: OLANZapine 2.5MG tablet PO ONE (09:40)
[2022-10-09] MEDS ORDERED: HYDROcodone/acetaminophen 10/325mg tab PO ONE (09:40)
--- NOTE | 2022-10-09 09:40 | NUR ---
Met with patient in regards to substance use and to see if patient was interested in resources for treatment options. Patient is interested in in/out patient treatment options. I gave patient a list of resources, MAT clinic information and my card to call me with any questions.
--- NOTE | 2022-10-09 09:50 | NUR ---
Pt. c/o generalized body aches rated 10/10. RN called provider who ordered [place] x1.
--- NOTE | 2022-10-09 10:30 | NUR ---
Pt. asleep and lying on left side. Respirations 18, even and unlabored.
--- NOTE | 2022-10-09 10:43 | NUR ---
Pt. woke up agitated and tossing himself back and forth in bed. Pt. given Zyprexa 10mg po.
--- NOTE | 2022-10-09 12:30 | NUR ---
Pt. got up and used the bathroom. Pt. then went back to sleep. Respirations 20, even and unlabored.
--- NOTE | 2022-10-09 14:30 | NUR ---
Pt. asleep in bed, lying on his left side. Respirations 20, even and unlabored.
--- NOTE | 2022-10-09 16:30 | NUR ---
Pt. asleep in bed lying on his right side. Respirations 18, even and unlabored.
--- NOTE | 2022-10-09 16:44 | NUR ---
RN informed by [facility] social security benefits interviewer that pt. will be assessed for 5150 tomorrow due to his ongoing withdrawal. Pt.'s 1798 exteded by provider.
--- NOTE | 2022-10-09 18:21 | NUR ---
Pt. awake and used toilet and lying in bed in supine position. Pt. in no apparent distress.
--- NOTE | 2022-10-09 19:58 | NUR ---
The patient is complaining of generalized pain. Dr. Webb made aware and orders received.
[2022-10-09] MEDS: acetaminophen 325mg tablet PO PRN (20:09)
--- NOTE | 2022-10-09 20:11 | NUR ---
The patient has been isolating in his bed. He has been up to use the bathroom occasionally. He continues to endorse suicidal thoughts with a plan to make it as quickly as possible. He reports voices but when asked how often or what they were saying he was evasive and vague. He reports his anxiety was high. He stated that he has been homeless for several years and is currently on probation.
[2022-10-09] MEDS ORDERED: NO HOME MEDS (20:19)
--- NOTE | 2022-10-09 20:49 | NUR ---
The patient is resting on her bed.
--- NOTE | 2022-10-09 21:45 | NUR ---
The patient appears to be sleeping
[2022-10-09] MEDS: olanzapine 10mg tablet PO SCH (22:20)
--- NOTE | 2022-10-09 22:52 | NUR ---
The patient appears to be sleeping
--- NOTE | 2022-10-10 01:22 | NUR ---
The patient appears to be sleeping
--- NOTE | 2022-10-10 03:09 | NUR ---
The patient awake and vomiting. MD made aware and orders received.
[2022-10-10] MEDS ORDERED: ondansetron 4mg rapidly disintigrating tab PO ONE ×2 (03:10→10:00)
--- NOTE | 2022-10-10 05:02 | NUR ---
The patient appears to be sleeping
[2022-10-10] MEDS ORDERED: OLANZapine 5mg rapidly disint. tablet PO ONE (05:45)
[2022-10-10] MEDS: acetaminophen 325mg tablet PO PRN (05:56)
--- NOTE | 2022-10-10 05:59 | NUR ---
The patient is complaining of needing xanax and norco. Dr. Copeland was made aware and orders received. The patient was angry and not getting the medications that he requested but instead was given tylenol and olanzapine.
--- NOTE | 2022-10-10 06:30 | NUR ---
Pt is lying in bed on his left side. He appears to be sleeping. RR 16.
--- NOTE | 2022-10-10 08:16 | NUR ---
Pt is lying in bed on his right side, he appears to be sleeping.
--- NOTE | 2022-10-10 09:00 | NUR ---
Pt ate his breakfast then went back to sleep.
--- NOTE | 2022-10-10 09:35 | NUR ---
Substance abuse coordinator Mary Jane here at bedside discussing when to start Suboxone.
--- NOTE | 2022-10-10 09:37 | NUR ---
Pt c/o pain and nausea.
--- NOTE | 2022-10-10 09:48 | NUR ---
PRODUCTION SUPPORT ANALYST Carey at bedside assessing the patient.
--- NOTE | 2022-10-10 09:51 | NUR ---
Followed up with patient to see how he is doing. Patient feels he can start Suboxone now. I talked to Monserrat Patino about starting patient. She will evaluate him and get meds ordered.
[2022-10-10] MEDS ORDERED: buprenorphine/naloxone 8MG-2MG SUBlingual film SL STA ×2 (09:57→11:02)
--- NOTE | 2022-10-10 09:57 | NUR ---
When asked if still feeling suicidal, pt moaned and replied that he wasn't feeling anything but pain, physical pain, states his back and insides are throbbing. SILO FILLER is going to put in some new orders. Pt reports that he had diarrhea all day yesterday.
--- NOTE | 2022-10-10 10:14 | NUR ---
Pt given two 8/2 mg Suboxone films per order.
--- NOTE | 2022-10-10 10:15 | NUR ---
Pt given Zofran 4 mg ODT.
--- NOTE | 2022-10-10 10:15 | NUR ---
tech took pt vitals as per COMMANDING OFFICER [employer]ARAGE and RN requests, vitals given to RN.
[2022-10-10] MEDS ORDERED: ALPRAZolam 0.5mg tablet PO ONE (11:05)
--- NOTE | 2022-10-10 11:14 | NUR ---
Xanax 0.5 mg PO given along with another Suboxone 8/2 mg film.
[2022-10-10] MEDS ORDERED: ONDA4TAB12 PO ×2 (11:22)
[2022-10-10] MEDS ORDERED: BUPR1FIL3 SL ×2 (11:22)
[2022-10-10] MEDS ORDERED: ALPR-624 PO ×2 (11:22)
--- NOTE | 2022-10-10 11:25 | NUR ---
Pt requested a popscicle. He was provided with ice chips and a lemon Georgian ice dessert.
--- NOTE | 2022-10-10 11:26 | NUR ---
Pt was placed on another 1798.
--- NOTE | 2022-10-10 13:43 | NUR ---
Pt's mom Abdulkadir Whiting called for an update. Pt gave this nurse permission to share info with his mom. Mom lives in [place]. She is searching for a treatment center for him but not having much luck. Mom reports that the places here in [place] are full and to coordinate him going elsewhere is challenging.
--- NOTE | 2022-10-10 13:50 | NUR ---
Per Mary Jane, Substance Abuse coordinator, Carey EMPLOYEE BENEFITS INSURANCE AGENT put in Rx for Suboxone for pt's discharge probably tomorrow, after Rx runs out, pt will be able to come here weekly for his Suboxone Rx to help keep him off Fentanyl.
--- NOTE | 2022-10-10 13:50 | NUR ---
Rekha corey in [facility] - 10/10/22 at 1350 by KERRI Alberto Hinton,
--- NOTE | 2022-10-10 15:26 | NUR ---
Pt got up to use the bathroom. Pt is now watching TV.
--- NOTE | 2022-10-10 17:14 | NUR ---
Pt is lying in bed on his back, appears to be sleeping.
--- NOTE | 2022-10-10 17:40 | NUR ---
Pt provided with a warm blanket per request.
--- NOTE | 2022-10-10 18:33 | NUR ---
The patient is requesting to be discharged. "I'm fine now. My back hurts a little bit but that's fine. I don't feel suicidal. I can go stay with my friend" Dwight KENDRICK
[2022-10-10 18:44] LABS: CLARITY,URINE CLOUDY (Clear); COLOR,URINE YELLOW (Yellow); GLUCOSE, URINE NEGATIVE (Neg); KETONES,URINE NEGATIVE (Neg); LEUKOCYTE ESTERASE ,URINE NEGATIVE (Neg); NITRITES, URINE NEGATIVE (Neg); OCCULT BLOOD,URINE TRACE-INTACT (Neg); PROTEIN,URINE NEGATIVE (Neg); UROBILINOGEN,URINE 0.2 E.U/dL (0.2-1.0)
[2022-10-10 18:52] LABS: UA COLLECTION TYPE CLN CATCH MIDSTREAM
[2022-10-10 18:55] LABS: AMORPHOUS PHOSPHATES 4+; BACTERIA,URINE NONE SEEN /HPF (Neg); RBC,URINE 0-2 /HPF (0-2); SQUAMOUS EPITHELIAL CELL,UR NONE SEEN /LPF (FEW); WBC,URINE 0-4 /HPF (0-4)
[2022-10-10 19:08] VITALS: BP 143/87
[2022-10-11] MEDS ORDERED: ONDA4TAB12 PO (09:24)
[2022-10-11] MEDS ORDERED: BUPR1FIL3 SL (09:24)
[2022-10-11] MEDS ORDERED: ALPR-624 PO (09:24)
== END 2022-10-10 19:11 ==
LOC: ER 20:54
DX: R45.851 Suicidal ideations (principal); Z20.822 Contact with and (suspected) exposure to COVID-19; F22 Delusional disorders; J45.909 Unspecified asthma, uncomplicated; F17.200 Nicotine dependence, unspecified, uncomplicated; F12.90 Cannabis use, unspecified, uncomplicated; Z91.041 Radiographic dye allergy status
CPT/HCPCS: 36415; 80053; 80305; 80320; 80329; 81001; 84443; 85025; 87502; 87503; 87811; 99285

== ENCOUNTER 2022-10-15 15:41 | Emergency (ER) | payer MEDICAID ==
[~2022-10-15] VITALS: Ht 170.2 cm; Wt 68.0 kg
[~2022-10-15 15:41] MED LIST changes: +ALPR-624 PO; +BUPR1FIL3 SL; -IBUP-1984 PO; +NO HOME MEDS; +ONDA4TAB12 PO; -SULF1TAB45 PO
[2022-10-15 15:54] VITALS: BP 130/101
[2022-10-15] MEDS ORDERED: BUPR1FIL3 SL (16:01)
[2022-10-15] MEDS ORDERED: ALPR-624 PO (16:01)
[2022-10-15] MEDS ORDERED: buprenorphine/naloxone 8MG-2MG SUBlingual film SL STA (16:02)
--- NOTE | 2022-10-15 16:06 | NUR ---
Met with patient in regards to getting prescription for Suboxone. Patient is doing great. Has an appt tomorrow for a program and has an appt Friday to continue Suboxone through [facility]. Talked to Monserrat and she is seeing patient.
== END 2022-10-15 17:03 | disposition home or self-care (01) ==
LOC: ER 15:42
DX: F11.23 Opioid dependence with withdrawal (principal); F17.200 Nicotine dependence, unspecified, uncomplicated; F15.10 Other stimulant abuse, uncomplicated; F12.10 Cannabis abuse, uncomplicated; J45.909 Unspecified asthma, uncomplicated; Z88.8 Allergy status to other drugs, medicaments and biological substances; Z79.899 Other long term (current) drug therapy; Z79.1 Long term (current) use of non-steroidal anti-inflammatories (NSAID); F31.9 Bipolar disorder, unspecified
CPT/HCPCS: 99283

== ENCOUNTER 2022-10-25 15:43 | Emergency (ER) | payer MEDICAID ==
[~2022-10-25] VITALS: Ht 170.2 cm; Wt 63.0 kg
[2022-10-25 15:57] VITALS: BP 134/64
[2022-10-25] MEDS ORDERED: ALPR-624 PO (16:35)
[2022-10-25] MEDS ORDERED: buprenorphine/naloxone 8MG-2MG SUBlingual film SL STA (16:36)
[2022-10-25] MEDS ORDERED: buprenorphine/naloxone 2-0.5mg sublingual tablet SL STA (16:42)
== END 2022-10-25 17:28 | disposition home or self-care (01) ==
LOC: ER 15:44
DX: F41.9 Anxiety disorder, unspecified (principal); Z76.0 Encounter for issue of repeat prescription; J45.909 Unspecified asthma, uncomplicated; F32.A Depression, unspecified; F17.200 Nicotine dependence, unspecified, uncomplicated; F12.10 Cannabis abuse, uncomplicated; F15.10 Other stimulant abuse, uncomplicated; F11.10 Opioid abuse, uncomplicated; Z88.8 Allergy status to other drugs, medicaments and biological substances; Z79.899 Other long term (current) drug therapy; Z79.1 Long term (current) use of non-steroidal anti-inflammatories (NSAID)
CPT/HCPCS: 99283; 99284

== ENCOUNTER 2022-11-03 20:17 | Emergency (ER) | payer MEDICAID ==
[~2022-11-03] VITALS: Ht 170.2 cm; Wt 63.3 kg
[2022-11-03 20:21] VITALS: BP 125/83
[2022-11-03] MEDS ORDERED: BUPR1FIL3 SL (21:35)
[2022-11-03] MEDS ORDERED: ALPR-624 PO (21:35)
== END 2022-11-03 21:52 | disposition home or self-care (01) ==
LOC: ER 20:17
DX: R07.89 Other chest pain (principal); Z76.0 Encounter for issue of repeat prescription
CPT/HCPCS: 93005; 99283

== ENCOUNTER 2022-11-21 14:34 | Emergency (ER) | payer MEDICAID ==
[~2022-11-21] VITALS: Ht 170.2 cm; Wt 68.2 kg
[2022-11-21 15:33] LABS: BASOPHILS # (AUTO) 0.1 X10'3 (0-0.2); BASOPHILS % (AUTO) 0.4 % (0-1); EOSINOPHILS # (AUTO) 0.3 X10'3 (0-0.9); EOSINOPHILS % (AUTO) 2.9 % (0-6); HEMATOCRIT 41.5 % (42.0-52.0); HEMOGLOBIN 13.6 g/dl (14.0-17.9); LYMPHOCYTES # (AUTO) 3.2 X10'3 (1.1-4.8); LYMPHOCYTES % (AUTO) 28.2 % (21-51); MEAN CORPUSCULAR HEMOGLOBIN 29.1 PG (27.0-31.0); MEAN CORPUSCULAR HGB CONC 32.8 g/dL (33.0-36.5); MEAN CORPUSCULAR VOLUME 88.7 FL (78-98); MEAN PLATELET VOLUME 7.7 FL (7.4-10.4); MONOCYTES # (AUTO) 0.9 X10'3 (0-0.9); MONOCYTES % (AUTO) 8.1 % (2-12); NEUTROPHILS # (AUTO) 6.9 X10'3 (1.8-7.7); NEUTROPHILS % (AUTO) 60.4 % (42-75); PLATELET COUNT 301 X10'3 (140-440); RED BLOOD COUNT 4.68 X10'6 (4.70-6.10); RED CELL DISTRIBUTION WIDTH 15.5 % (11.5-14.5); WHITE BLOOD COUNT 11.4 X10'3 (4.5-11.0)
[2022-11-21 15:40] LABS: ALANINE AMINOTRANSFERASE 37 U/L (12-78); ALBUMIN 3.9 G/DL (3.4-5.0); ALBUMIN/GLOBULIN RATIO 1.2 (1.1-1.5); ALKALINE PHOSPHATASE 96 IU/L (46-116); ANION GAP 6 (8-16); ASPARTATE AMINO TRANSFERASE 23 U/L (10-37); BILIRUBIN,TOTAL 0.7 MG/DL (0.1-1.0); BLOOD UREA NITROGEN 15 MG/DL (7-18); BUN/CREATININE RATIO 16.5 (10.0-20.0); CHLORIDE 105 MMOL/L (99-107); CREATININE 0.91 MG/DL (0.60-1.10); GLUCOSE 83 MG/DL (70-104); SODIUM 139 MMOL/L (135-145); TOTAL CARBON DIOXIDE 28.5 MMOL/L (24-32); TOTAL PROTEIN 7.2 G/DL (6.4-8.2); eGFR > 90 ML/MIN
[2022-11-21] MEDS ORDERED: ketorolac trometh inj. 60 MG/2 ML VIAL IM ONE (16:25)
[2022-11-21] MEDS ORDERED: LIDOcaine 5% patch TP STA (16:25)
[2022-11-21] MEDS ORDERED: ALPR-624 PO (16:37)
[2022-11-21] MEDS ORDERED: IBUP-1986 PO (16:37)
[2022-11-21] MEDS ORDERED: BUPR1FIL3 SL (16:37)
[2022-11-21 17:11] VITALS: BP 112/73
== END 2022-11-21 17:13 | disposition home or self-care (01) ==
LOC: ER 14:34
DX: R07.89 Other chest pain (principal); F41.9 Anxiety disorder, unspecified; F12.10 Cannabis abuse, uncomplicated; F15.10 Other stimulant abuse, uncomplicated; Z88.8 Allergy status to other drugs, medicaments and biological substances; Z79.899 Other long term (current) drug therapy
CPT/HCPCS: 36415; 80053; 83880; 84484; 85025; 93005; 96372; 99284; J1885

== ENCOUNTER 2022-12-13 10:26 | Emergency (ER) | payer MEDICAID ==
[~2022-12-13] VITALS: Ht 162.6 cm; Wt 68.0 kg
[~2022-12-13 10:26] MED LIST changes: +IBUP-1986 PO
[2022-12-13 10:49] VITALS: BP 103/50
== END 2022-12-13 11:10 | disposition home or self-care (01) ==
LOC: ER 10:26
DX: Z00.00 Encounter for general adult medical examination without abnormal findings (principal); R22.2 Localized swelling, mass and lump, trunk; R10.33 Periumbilical pain; J45.909 Unspecified asthma, uncomplicated; F12.90 Cannabis use, unspecified, uncomplicated; F11.90 Opioid use, unspecified, uncomplicated; F15.90 Other stimulant use, unspecified, uncomplicated; Z91.041 Radiographic dye allergy status; Z79.899 Other long term (current) drug therapy; Z98.890 Other specified postprocedural states
CPT/HCPCS: 99281